=== PATIENT | male | born 1975 | race Two or more races ===

== ENCOUNTER 2022-11-30 08:37 | Outpatient (CLI) | payer OTHER | END 2022-11-30 09:03 | disposition home or self-care (01) | LOC: SONOGRAMA 08:37 | PROVIDERS: ATTEND Internal Medicine Gastroenterology | DX: R10.12 Left upper quadrant pain (principal); R10.9 Unspecified abdominal pain; Z86.010 Personal history of colon polyps ==

== ENCOUNTER 2022-12-31 10:39 | Outpatient (CLI) | payer OTHER | END 2022-12-31 10:47 | disposition home or self-care (01) | LOC: MRI 10:39 | PROVIDERS: ATTEND Internal Medicine Gastroenterology | DX: M54.6 Pain in thoracic spine (principal); R52 Pain, unspecified | CPT/HCPCS: 72146 ==